=== PATIENT | female | born 1980 ===

== ENCOUNTER → 2019-04-05 14:58 | Outpatient (CLI) | payer OTHER, SELFPAY ==
--- NOTE | 2019-04-05 | DI.RAD.S_ITS ---
PROCEDURE: XR LUMBAR SPINE 2-3V INDICATIONS: lumbar spine pain TECHNIQUE: 3 views of the lumbar spine were acquired. COMPARISON: None. FINDINGS: Bones: 5 [id number] vertebrae are present. There is normal bony alignment. No acute vertebral body compression fractures. Mild lower lumbar spondylitic changes at L5-S1. Density projecting over the anterior, inferior L5 vertebral body changes in size between the lateral and coned-down lateral views and likely representing super imposition of overlapping structures. Otherwise, there are no suspicious bony lesions. Soft tissues: Overlying bowel gas pattern is normal. No suspicious soft tissue calcifications. IMPRESSION: Lumbar spine without acute radiographic abnormalities. Mild lower lumbar spondylosis at L5-S1. Dictated by: Toy Alfredo M.D. on 04/05/2019 at 17:49 Approved by: Toy Alfredo M.D. on 04/05/2019 at 17:52
== END ==
PROVIDERS: Visit Provider Chiropractor
DX: M54.5 Low back pain (principal); M47.817 Spondylosis without myelopathy or radiculopathy, lumbosacral region; M99.03 Segmental and somatic dysfunction of lumbar region; G89.29 Other chronic pain
CPT/HCPCS: 72100